=== PATIENT | female | born 1940 | race African-American/Black ===

== ENCOUNTER 2022-07-04 07:09 | Inpatient (IN) ==
[2022-07-04] MEDS ORDERED: FUROSEMIDE 100 MG/10 ML VIAL IV STA (07:38)
[2022-07-04] MEDS ORDERED: ALBUTEROL 2.5 MG/3 ML NEB RESP TX ONE (07:57)
[2022-07-04 07:59] LABS: Basophils % 0.4 % (0.0-0.8); Eosinophils % 0.4 % (0.00-10.9); Hematocrit 39.8 VOL% (35.7-47.0); Hemoglobin 12.3 GM/DL (12.0-16.0); Immature Granulocytes % 0.6 %; Immature Granulocytes Absolute 0.03 #; Lymphocytes # 0.9 10*3/uL (1.4-4.0); Lymphocytes % 16.3 % (21.3-54.2); Mean Corpuscular HGB Conc 30.9 GM/DL (32-36); Mean Corpuscular Volume 86.1 FL (87-102); Monocytes # 0.3 10*3/uL (0.11-0.8); Monocytes % 5.2 % (1.7-12.7); Neutrophils % 77.1 % (38.7-73.9); Platelet Count 116 T/CUMM (130-400); Red Blood Count 4.62 MC/CUMM (3.8-5.5); Red Cell Distribution Width 17.2 % (9.3-17.3); White Blood Count 5.4 T/CUMM (4-12)
[2022-07-04] MEDS ORDERED: ALBUTEROL NEB SOLN 5 MG/ML 20 ML/BOTTLE CONT NEB SCH (08:00)
[2022-07-04 08:01] LABS: Arterial Base Excess iSTAT -6 MMOL/L (-2.5-2.5); Arterial Bicarbonate iSTAT 19.4 MMOL/L (20-26); Arterial O2 Saturation iSTAT 98 % (95-100); Arterial PCO2 iSTAT 37 MM HG (35-48); Arterial PO2 iSTAT 103 MM HG (80-95); Arterial Total CO2 iSTAT 21 MMO/L (23-27); Arterial pH iSTAT 7.335 (7.35-7.45)
[2022-07-04 08:13] LABS: INR 1.1; PT Patient Result 11.6 SECS (10.1-12.1); Partial Thromboplastin Time 22.3 SECS (23.7-32.9)
[2022-07-04 08:19] LABS: Albumin 3.8 G/DL (3.4-5.0); Bilirubin,Total 1.1 MG/DL (0.20-1.00); Calcium 9.9 MG/DL (8.5-10.1); Osmolality,Calculated 299.6 MOS/KG (273-304)
[2022-07-04] MEDS ORDERED: niCARdipine INJ 25 MG in SODIUM CHLORIDE 0.9% 240 ML IV PRN (08:37)
[2022-07-04] MEDS ORDERED: ACETAMINOPHEN 325 MG TABLET PO PRN (09:17)
[2022-07-04] MEDS ORDERED: ONDANSETRON 4 MG/2 ML VIAL IV PRN (09:17)
[2022-07-04] MEDS ORDERED: ALBUTEROL 2.5 MG/3 ML NEB RESP TX PRN (09:17)
[2022-07-04] MEDS ORDERED: ENOXAPARIN 40 MG/0.4 ML SYRINGE SUBCUT SCH (09:30)
[2022-07-04] MEDS ORDERED: niCARdipine 25 MG/10 ML VIAL IV ONE (09:55)
[2022-07-04 10:56] LABS: Amorphous Crystals,Urine Few /HPF (Few); Bacteria,Urine Occasional /HPF (Few); Mucus,Urine Occasional /LPF (Occasional); RBC,Urine 4 /HPF (0-4)
[2022-07-04 10:59] LABS: Bilirubin,Urine Negative (Negative); Blood, Urine Moderate mg/dL (Negative); Glucose,Urine (UA) Negative (Negative); Ketones,Urine Negative (Negative); Nitrite,Urine Negative (Negative); Protein,Urine 100 mg/dL (Negative); Urine Appearance Clear (Clear); Urine Color Yellow (Yellow); Urine Urobilinogen 0.2 eU/dL (<2.0)
[2022-07-04] MEDS: hydrALAZINE 20 MG/1 ML VIAL IV PRN ×2 (13:52→20:20)
[2022-07-04] MEDS: FUROSEMIDE 40 MG/4 ML VIAL IV SCH (16:40)
[2022-07-04] MEDS ORDERED: ASPIRIN EC 325 MG TABLET PO ONE (17:59)
[2022-07-05 04:39] LABS: Basophils % 0.4 % (0.0-0.8); Eosinophils % 0.6 % (0.00-10.9); Hematocrit 33.3 VOL% (35.7-47.0); Hemoglobin 10.6 GM/DL (12.0-16.0); Immature Granulocytes % 0.2 %; Immature Granulocytes Absolute 0.01 #; Lymphocytes # 0.7 10*3/uL (1.4-4.0); Lymphocytes % 14.5 % (21.3-54.2); Mean Corpuscular HGB Conc 31.8 GM/DL (32-36); Mean Corpuscular Volume 84.1 FL (87-102); Monocytes # 0.4 10*3/uL (0.11-0.8); Monocytes % 8.3 % (1.7-12.7); Platelet Count 91 T/CUMM (130-400); Red Blood Count 3.96 MC/CUMM (3.8-5.5); Red Cell Distribution Width 16.6 % (9.3-17.3); White Blood Count 4.7 T/CUMM (4-12)
[2022-07-05 05:17] LABS: Free T4 (Free Thyroxine) 1.21 NG/DL (0.76-1.46); Thyroid Stimulating Hormone 5.06 uIU/ml (0.358-3.74)
[2022-07-05 05:19] LABS: Lymphocytes 18 % (20-55); Total Cells Counted 100
[2022-07-05 05:20] LABS: Hypochromia 1+; Microcytosis 1+; Ovalocytes Slight; Platelet Estimate Decreased
[2022-07-05 05:31] LABS: Folate 5.91 NG/ML (5.38-24.0)
[2022-07-05 05:41] LABS: Bilirubin,Total 0.5 MG/DL (0.20-1.00); Calcium 9.1 MG/DL (8.5-10.1); Osmolality,Calculated 307.1 MOS/KG (273-304); Potassium 3.8 MMOL/L (3.5-5.1); Total Protein 6.2 G/DL (6.4-8.2)
[2022-07-05 05:45] LABS: Hepatitis B Core IgM Quant 0.06 Index; Hepatitis B Surface Ag Quant < 0.10 Index; Hepatitis B Surface Ag Result Non-Reactive (NonReactive); Hepatitis C Virus Ab Quant 0.04 Index; Hepatitis C Virus Ab Result Non-Reactive (NonReactive)
[2022-07-05] MEDS: FUROSEMIDE 40 MG/4 ML VIAL IV SCH ×2 (07:43→17:16)
[2022-07-05] MEDS: PANTOPRAZOLE 40 MG TABLET PO SCH (08:00)
[2022-07-05] MEDS: ASPIRIN EC 81 MG TABLET PO SCH (08:00)
[2022-07-05] MEDS ORDERED: PANTOPRAZOLE 40 MG TABLET PO SCH (09:00)
[2022-07-05] MEDS ORDERED: INFLUENZA VIRUS VACCINE 0.5 ML SYRINGE IM ONE (12:00)
[2022-07-05] MEDS ORDERED: FUROSEMIDE 40 MG/4 ML VIAL IV ONE (12:51)
[2022-07-05] MEDS: METOPROLOL TARTRATE 25 MG TABLET PO SCH ×2 (13:05→20:33)
[2022-07-05] MEDS ORDERED: hydrALAZINE 25 MG TABLET PO SCH (15:00)
[2022-07-05] MEDS: ISOSORBIDE MONONITRATE 30 MG TABLET PO SCH (17:15)
[2022-07-05] MEDS: CHOLECALCIFEROL 5,000 UNIT TABLET PO SCH ×2 (17:15→20:34)
[2022-07-05 17:23] LABS: Basophils % 0.4 % (0.0-0.8); Eosinophils # 0.1 10*3/uL (0.0-0.87); Eosinophils % 1.1 % (0.00-10.9); Hematocrit 33.9 VOL% (35.7-47.0); Hemoglobin 11.1 GM/DL (12.0-16.0); Immature Granulocytes % 0.5 %; Immature Granulocytes Absolute 0.03 #; Lymphocytes # 0.9 10*3/uL (1.4-4.0); Lymphocytes % 15.7 % (21.3-54.2); Mean Corpuscular HGB Conc 32.7 GM/DL (32-36); Mean Corpuscular Volume 82.5 FL (87-102); Monocytes # 0.4 10*3/uL (0.11-0.8); Monocytes % 7.1 % (1.7-12.7); Neutrophils % 75.2 % (38.7-73.9); Platelet Count 105 T/CUMM (130-400); Red Blood Count 4.11 MC/CUMM (3.8-5.5); Red Cell Distribution Width 16.7 % (9.3-17.3); White Blood Count 5.5 T/CUMM (4-12)
[2022-07-05 17:43] LABS: % Iron Saturation 10.8 % (18-50); Ferritin 73.7 ng/mL (8-252)
[2022-07-05 17:46] LABS: Folate 6.13 NG/ML (5.38-24.0)
[2022-07-05] MEDS: hydrALAZINE 25 MG TABLET PO SCH (20:34)
[2022-07-06 04:41] LABS: Basophils % 0.4 % (0.0-0.8); Eosinophils # 0.1 10*3/uL (0.0-0.87); Eosinophils % 1.7 % (0.00-10.9); Hematocrit 35.1 VOL% (35.7-47.0); Hemoglobin 11.2 GM/DL (12.0-16.0); Immature Granulocytes % 0.4 %; Immature Granulocytes Absolute 0.02 #; Lymphocytes % 18.3 % (21.3-54.2); Mean Corpuscular HGB Conc 31.9 GM/DL (32-36); Mean Corpuscular Volume 83.2 FL (87-102); Monocytes # 0.3 10*3/uL (0.11-0.8); Monocytes % 6.3 % (1.7-12.7); Neutrophils % 72.9 % (38.7-73.9); Platelet Count 102 T/CUMM (130-400); Red Blood Count 4.22 MC/CUMM (3.8-5.5); Red Cell Distribution Width 16.6 % (9.3-17.3); White Blood Count 5.4 T/CUMM (4-12)
[2022-07-06 05:04] LABS: Calcium 9.7 MG/DL (8.5-10.1); Osmolality,Calculated 299.7 MOS/KG (273-304); Potassium 3.5 MMOL/L (3.5-5.1)
[2022-07-06 05:10] LABS: Risk Ratio 1.77; VLDL Cholesterol 10.2 MG/DL
[2022-07-06 05:19] LABS: Platelet Estimate Decreased
[2022-07-06] MEDS: FUROSEMIDE 40 MG/4 ML VIAL IV SCH (07:24)
[2022-07-06] MEDS ORDERED: FUROSEMIDE 40 MG TABLET PO SCH (09:00)
[2022-07-06] MEDS: hydrALAZINE 25 MG TABLET PO SCH ×3 (10:59→20:50)
[2022-07-06] MEDS: ISOSORBIDE MONONITRATE 30 MG TABLET PO SCH (10:59)
[2022-07-06] MEDS: CHOLECALCIFEROL 5,000 UNIT TABLET PO SCH ×2 (11:00→20:49)
[2022-07-06] MEDS: ASPIRIN EC 81 MG TABLET PO SCH (11:00)
[2022-07-06] MEDS: PANTOPRAZOLE 40 MG TABLET PO SCH (11:00)
[2022-07-06] MEDS: METOPROLOL TARTRATE 25 MG TABLET PO SCH ×2 (11:00→20:49)
[2022-07-07 04:31] LABS: Basophils % 0.4 % (0.0-0.8); Eosinophils # 0.1 10*3/uL (0.0-0.87); Eosinophils % 1.3 % (0.00-10.9); Hematocrit 30.6 VOL% (35.7-47.0); Hemoglobin 10.1 GM/DL (12.0-16.0); Immature Granulocytes % 0.4 %; Immature Granulocytes Absolute 0.02 #; Lymphocytes # 0.8 10*3/uL (1.4-4.0); Lymphocytes % 14.9 % (21.3-54.2); Mean Corpuscular Volume 82.5 FL (87-102); Monocytes # 0.5 10*3/uL (0.11-0.8); Monocytes % 9.2 % (1.7-12.7); Neutrophils % 73.8 % (38.7-73.9); Platelet Count 92 T/CUMM (130-400); Red Blood Count 3.71 MC/CUMM (3.8-5.5); Red Cell Distribution Width 16.5 % (9.3-17.3); White Blood Count 5.2 T/CUMM (4-12)
[2022-07-07 04:45] LABS: Osmolality,Calculated 308.4 MOS/KG (273-304)
[2022-07-07] MEDS: PANTOPRAZOLE 40 MG TABLET PO SCH (09:04)
[2022-07-07] MEDS: hydrALAZINE 25 MG TABLET PO SCH ×3 (09:04→20:38)
[2022-07-07] MEDS: CHOLECALCIFEROL 5,000 UNIT TABLET PO SCH ×2 (09:04→20:38)
[2022-07-07] MEDS: ASPIRIN EC 81 MG TABLET PO SCH (09:04)
[2022-07-07] MEDS: ISOSORBIDE MONONITRATE 30 MG TABLET PO SCH (09:04)
[2022-07-07] MEDS: METOPROLOL TARTRATE 25 MG TABLET PO SCH ×2 (09:04→20:38)
[2022-07-08 06:06] LABS: Calcium 9.5 MG/DL (8.5-10.1); Osmolality,Calculated 304.6 MOS/KG (273-304); Potassium 3.1 MMOL/L (3.5-5.1)
[2022-07-08] MEDS: hydrALAZINE 25 MG TABLET PO SCH ×3 (09:11→21:26)
[2022-07-08] MEDS: CHOLECALCIFEROL 5,000 UNIT TABLET PO SCH ×2 (09:12→21:26)
[2022-07-08] MEDS: ASPIRIN EC 81 MG TABLET PO SCH (09:12)
[2022-07-08] MEDS: METOPROLOL TARTRATE 25 MG TABLET PO SCH ×2 (09:12→21:26)
[2022-07-08] MEDS: PANTOPRAZOLE 40 MG TABLET PO SCH (09:12)
[2022-07-08] MEDS: ISOSORBIDE MONONITRATE 30 MG TABLET PO SCH (09:12)
[2022-07-08] MEDS ORDERED: POTASSIUM CHLORIDE 20 MEQ TABLET PO ONE ×2 (11:30→18:00)
[2022-07-09] MEDS: hydrALAZINE 25 MG TABLET PO SCH ×3 (10:46→21:33)
[2022-07-09] MEDS: ASPIRIN EC 81 MG TABLET PO SCH (10:46)
[2022-07-09] MEDS: ISOSORBIDE MONONITRATE 30 MG TABLET PO SCH (10:47)
[2022-07-09] MEDS: CHOLECALCIFEROL 5,000 UNIT TABLET PO SCH ×2 (10:47→21:33)
[2022-07-09] MEDS: PANTOPRAZOLE 40 MG TABLET PO SCH (10:47)
[2022-07-09] MEDS: METOPROLOL TARTRATE 25 MG TABLET PO SCH ×2 (10:47→21:34)
[2022-07-09] MEDS: POTASSIUM CHLORIDE 20 MEQ TABLET PO ONE ×2 (10:48→10:55)
[2022-07-09] MEDS ORDERED: POTASSIUM CHLORIDE 20 MEQ TABLET PO ONE (12:00)
[2022-07-10 04:28] LABS: Calcium 9.1 MG/DL (8.5-10.1); Osmolality,Calculated 303.7 MOS/KG (273-304); Potassium 4.4 MMOL/L (3.5-5.1)
[2022-07-10] MEDS: PANTOPRAZOLE 40 MG TABLET PO SCH (08:00)
[2022-07-10] MEDS: ISOSORBIDE MONONITRATE 30 MG TABLET PO SCH (08:00)
[2022-07-10] MEDS: CHOLECALCIFEROL 5,000 UNIT TABLET PO SCH (08:00)
[2022-07-10] MEDS: ASPIRIN EC 81 MG TABLET PO SCH (08:00)
[2022-07-10] MEDS: hydrALAZINE 25 MG TABLET PO SCH (08:00)
[2022-07-10] MEDS: METOPROLOL TARTRATE 25 MG TABLET PO SCH (08:00)
[2022-07-10 08:54] VITALS: BP 187/94
== END 2022-07-10 13:15 | disposition home or self-care (01) | DRG 291 ==
LOC: N.ED 07:09 → N.CC 10:55 → SUATTDRO 11:05 → N.CC 11:05 → N.TELES 19:23
PROVIDERS: ADMIT Emergency Medicine; ATTEND Internal Medicine Geriatric Medicine